=== PATIENT | female | born 1965 | race Caucasian/White ===

== ENCOUNTER 2017-03-18 04:59 | Emergency (ER) | payer MEDICAID ==
[2017-03-18] MEDS ORDERED: Albuterol/Ipratropium 3.0-0.5 MG/3 ML Neb Soln NEB ONE (05:06)
[2017-03-18] MEDS ORDERED: predniSONE 20 MG Tab PO ONE (05:06)
[2017-03-18] MEDS ORDERED: Albuterol 0.083% 2.5 MG/3 ML Neb Soln NEB ONE ×2 (05:06→07:16)
[2017-03-18] MEDS ORDERED: Budesonide 0.5 MG/2 ML Neb Susp NEB ONE (05:06)
--- NOTE | 2017-03-18 05:15 | EDM.PDOC ---
ED HPI GENERAL MEDICAL PROBLEM - General Chief Complaint: Respiratory Problem Stated Complaint: SOB Time Seen by Provider: 03/18/17 05:00 Source of Information: Reports: Patient, Old Records, RN Notes Reviewed History Limitations: Reports: No Limitations - History of Present Illness INITIAL COMMENTS - FREE TEXT/NARRATIVE: Brought by friend Chief complaint Short of breath, wheezing History of present illness 52-year-old female, quit smoking 3 years ago after 20 pack years of smoking, has been diagnosed with asthma and has run out of her inhaler. Expose to cat dander about 36 hours ago, increasing shortness of breath the last 12 hours ago. She allowed her insurance to labs and does not have any coverage so she ran out of her medication for asthma. Previously has been on prednisone but never admitted for asthma and never intubated. Mild cold symptoms, slight fever yesterday. Very short of breath and wheezing tonight No chest pain - Related Data Allergies Allergy/AdvReac Type Severity Reaction Status Date / Time doxepin [Doxepin] Allergy Swollen Verified 09/28/15 02:59 Tongue morphine Allergy Swelling Verified 09/28/15 02:59 tramadol Allergy Vomiting Verified 09/28/15 02:59 trazodone Allergy Itching Verified 09/28/15 02:59 Home Meds: Home Meds Vilazodone [Viibryd] 40 mg PO DAILY 10/10/14 [History] Albuterol [Proventil Neb Soln] 1 ampule IH Q4H PRN 09/28/15 [History] Albuterol [Ventolin HFA] 1 - 2 puff IH Q4H PRN 09/28/15 [History] Calcium Carbonate/Vitamin D3 [Calcium 600 + Vit D 400 Softgl] 1 tab PO TID 09/27 [History] hydrOXYzine HCl [hydrOXYzine] 25 mg PO BEDTIME 09/28/15 [History] Albuterol [IMW: Albuterol] 2.5 ml NEB Q3H PRN #75 ml 03/18/17 [Rx] predniSONE [Prednisone] 20 mg PO BID #14 tablet 03/18/17 [Rx] Past Medical History - Past Health History Medical/Surgical History: Denies Medical/Surgical History Respiratory History: Reports: Asthma, Other (See Below) Other Respiratory History: O2 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 Denies: Ear Discharge, Ear Pain, Eye Discharge, Throat Pain Respiratory: Reports: Shortness of Breath, Wheezing, Cough. Denies: Hemoptysis Cardiovascular: Reports: Dyspnea on Exertion. Denies: Chest Pain, Lightheadedness, Syncope GI/Abdominal: Reports: No Symptoms : Reports: No Symptoms Musculoskeletal: Reports: No Symptoms Skin: Reports: No Symptoms Neurological: Reports: No Symptoms Psychiatric: Reports: Other (Sleep disturbance) Immunologic: Reports: Environmental Allergy, Seasonal Allergy ED EXAM, GENERAL - Physical Exam Exam: See Below Exam Limited By: No Limitations General Appearance: Moderate Distress, Other (Audible wheezing and tachypnea, but she is able to respond appropriately to questioning, mild hypoxia on initial presentation) Eye Exam: Bilateral Eye: Normal Inspection Ears: Normal External Exam, Normal Canal, Hearing Grossly Normal, Normal TMs Nose: Normal Inspection, Normal Mucosa Throat/Mouth: Normal Inspection, Normal Oropharynx Head: Atraumatic Neck: Normal Inspection, Supple. No: Lymphadenopathy (R), Lymphadenopathy (L) Respiratory/Chest: Chest Non-Tender, Rhonchi, Wheezing, Prolonged Expiration, Other (Tachypnea) Cardiovascular: Normal Peripheral Pulses, Regular Rate, Rhythm, No Murmur GI/Abdominal: Soft, Non-Tender Back Exam: Normal Inspection Extremities: Normal Inspection, No Pedal Edema Neurological: Alert, No Motor/Sensory Deficits Psychiatric: Normal Affect Skin Exam: Warm, Dry, Normal Color, No Rash Course - Vital Signs Last Recorded V/S: Last Vital Signs Temp 35.0 C L 03/18/17 05:02 Pulse 68 03/18/17 05:25 Resp 19 03/18/17 05:25 BP 148/107 H 03/18/17 05:25 Pulse Ox 93 L 03/18/17 05:25 - Orders/Labs/Meds Orders: Active Orders 24 hr Category Date Time Status RT Aerosol Therapy [RC] ASDIRECTED Care 03/18/17 05:07 Active RT Aerosol Therapy [RC] ASDIRECTED Care 03/18/17 07:17 Ordered Meds: Medications Discontinued Medications Generic Name Dose Route Start Last Admin Trade Name Freq PRN Reason Stop Dose Admin Albuterol 2.5 mg 03/18/17 05:06 03/18/17 05:23 Proventil Neb Soln NEB 03/18/17 05:07 2.5 mg ONETIME ONE Administration Albuterol 2.5 mg 03/18/17 07:16 Proventil Neb Soln NEB 03/18/17 07:17 ONETIME ONE Albuterol/Ipratropium 3 ml 03/18/17 05:06 03/18/17 05:14 Duoneb 3.0-0.5 Mg/3 Ml NEB 03/18/17 05:07 3 ml ONETIME ONE Administration Budesonide 0.5 mg 03/18/17 05:06 03/18/17 05:33 Pulmicort NEB 03/18/17 05:07 0.5 mg ONETIME ONE Administration Prednisone 40 mg 03/18/17 05:06 03/18/17 05:14 Prednisone PO 03/18/17 05:07 40 mg ONETIME ONE Administration - Re-Assessments/Exams Free Text/Narrative Re-Assessment/Exam: 03/18/17 05:15 52-year-old female with exacerbation of asthma July, albuterol neb, budesonide and Pulmicort 40 mg by mouth 03/18/17 07:17 Much improved after the above Albuterol neb repeated Discharge home Follow-up primary care within 1 week Return to emergency if worsening Departure - Departure Time of Disposition: 07:25 Disposition: Home, Self-Care 01 Condition: Good Clinical Impression: Acute exacerbation of moderate persistent extrinsic asthma, Oxygen dependent, COPD exacerbation - Discharge Information Prescriptions: Albuterol [IMW: Albuterol] 2.5 ml NEB Q3H PRN #75 ml PRN Reason: Cough or wheezing predniSONE [Prednisone] 20 mg PO BID #14 tablet Instructions: Chronic Obstructive Pulmonary Disease Exacerbation, [id number] , Asthma, Adult Referrals: Vinay Wilson Sr, MD [Primary Care Provider] - Forms: ED Department Discharge Additional Instructions: Please make an appointment to be seen by her doctor within a week Return to emergency if your breathing is worsening - My Orders Last 24 Hours: My Active Orders 03/18/17 05:07 RT Aerosol Therapy [RC] ASDIRECTED 03/18/17 07:17 RT Aerosol Therapy [RC] ASDIRECTED - Assessment/Plan Last 24 Hours: My Active Orders 03/18/17 05:07 RT Aerosol Therapy [RC] ASDIRECTED 03/18/17 07:17 RT Aerosol Therapy [RC] ASDIRECTED
[2017-03-18 07:56] VITALS: BP 139/79
== END 2017-03-18 07:58 | disposition home or self-care (01) ==
LOC: JP.ED 04:59
DX: J45.41 Moderate persistent asthma with (acute) exacerbation (principal); J44.1 Chronic obstructive pulmonary disease with (acute) exacerbation; Z99.81 Dependence on supplemental oxygen; Z77.22 Contact with and (suspected) exposure to environmental tobacco smoke (acute) (chronic); Z79.899 Other long term (current) drug therapy; Z88.5 Allergy status to narcotic agent; Z88.8 Allergy status to other drugs, medicaments and biological substances
CPT/HCPCS: 94640; 99285; A9270; J7620; J7626; 99284

== ENCOUNTER 2017-09-13 11:30 | Day surgery (SDC) | payer MEDICAID ==
[~2017-09-13 11:30] MED LIST: Bacitracin Oint 1 GM U/D Packet ONE; Bupivacaine 0.5% 30 ML SDV ONE; Lidocaine 2% 20 ML MDV ONE; Midazolam 1 MG/ML 2 ML SDV ONE; Propofol 200 MG/20 ML SDV ONE; fentaNYL 100 MCG/2 ML SDV ONE
[2017-09-13] MEDS ORDERED: Lactated Ringers 1,000 ML IV SCH (12:00)
[2017-09-13] MEDS ORDERED: ceFAZolin 2 GM in Sodium Chloride 0.9% 50 ML IV ONE (12:30)
[2017-09-13] MEDS ORDERED: Propofol 200 MG/20 ML SDV ONE (13:07)
--- NOTE | 2017-09-13 14:42 | CR ---
FOOT RIGHT 3 views CLINICAL HISTORY:Surgery FINDINGS:There is some soft tissue swelling. Patient has had previous fixation with plates and screws at the first MTP joint. There is a calcaneal spur. Impression: Recent surgery and fixation at the first MTP joint
--- NOTE | 2017-09-13 14:43 | OR ---
DATE OF PROCEDURE: 09/13/2017 MACARONI MAKER: None. PREOPERATIVE DIAGNOSIS: Arthritis with bunion of right first MPJ. POSTOPERATIVE DIAGNOSIS: Arthritis with bunion of right first MPJ. PROCEDURE: Arthrodesis of the right first metatarsophalangeal joint. ANESTHESIA: Local with IV sedation. HEMOSTASIS: Obtained with an ankle tourniquet on the right ankle at 250 mmHg. ESTIMATED BLOOD LOSS: 5 mL. MATERIALS: One Arthrex right-sided standard first MPJ plate was used with four 3.0-mm locking screws and one 3.0 mm nonlocking screw. INJECTABLES: 16 mL of 1:1 mixture of lidocaine 2% plain and Marcaine 0.5% plain was injected preoperatively prior to prep. PATHOLOGY: None. CONDITION: Stable. INDICATIONS FOR SURGERY: Painful first MPJ of the right foot. PROCEDURE IN DETAIL: The patient was brought into the operating room and placed on the operating table in the supine position. Following IV sedation, anesthesia was obtained on the right foot with 16 mL of 1:1 mixture of lidocaine 2% plain and Marcaine 0.5% plain. The right foot was then scrubbed, prepped, and draped in the usual aseptic manner and raised to 60 degrees for hemostasis and exsanguinated using Esmarch bandage. Tourniquet was inflated. Foot was lowered to the table. Skin incision was made on the dorsomedial aspect of the right first metatarsophalangeal joint. Incisions were deepened through subcutaneous tissues with care taken to identify and retract all vital neurovascular structures. Following subcutaneous dissection, a T-type incision was made in the first metatarsophalangeal joint capsule. The capsule was carefully dissected off the first metatarsal head and the base of proximal phalanx. The sagittal saw was then used to remove the medial eminence of the first metatarsal head, and then the Arthrex 20 mm reamers were used to ream the first metatarsal head, and the base of the proximal phalanx. Prior to reaming, we did note some degenerative changes of the first metatarsophalangeal joint of the first metatarsal head with hypertrophy on the medial side of the first metatarsal head and also some loss of cartilage. After the reamers were used, fenestration was performed with a 1.6 mm K-wire in the first metatarsal head and the base of proximal phalanx, and the joint was reduced in its anatomic position for arthrodesis and plate was placed on it with provisional fixation of 2 pinballs. The guidewire for the compression screw was placed through a stab incision through proximal phalanx into the first metatarsal head and then the distal pinball was removed. The 30-mm compression screw was then placed and excellent compression was achieved. So, the guidewire was removed. Two locking screws were placed in the distal aspect of the plate and then the proximal pinball was removed. The eccentrically placed screw was placed in the eccentric hole with a 3-0 nonlocking screw and then the remaining 2 locking screw holes were filled with locking screws. The position was checked both visually and fluoroscopically and found to be anatomic with no gapping at the arthrodesis site. This incision was flushed out with copious amounts of sterile saline and then deep capsular closure was done with 3-0 Vicryl, subcutaneous closure with 3-0 Vicryl, and skin closure with 4-0 Prolene in a horizontal mattress configuration. The foot was dressed with Xeroform, 4x4s, Kerlix, and Coban. The patient was returned to the recovery room with vital signs stable and vascular status intact to both feet. The patient was told to rest, ice, and elevate the right foot. Keep dressings clean, dry, and intact. To be strict nonweightbearing. Ambulate with knee scooter and/or crutches. To go to the emergency room immediately if she has any nausea, vomiting, fever, chills, chest pain, calf pain, or difficulty breathing. The patient will return to clinic for followup in one week. Homar Toribio DPM /[id number]
[2017-09-13 16:04] VITALS: BP 123/69
== END 2017-09-13 15:45 | disposition home or self-care (01) ==
LOC: JP.SDS 11:30
PROVIDERS: ATTEND Podiatrist Foot & Ankle Surgery
DX: M19.071 Primary osteoarthritis, right ankle and foot (principal); M21.611 Bunion of right foot; J44.9 Chronic obstructive pulmonary disease, unspecified; M81.0 Age-related osteoporosis without current pathological fracture; F90.9 Attention-deficit hyperactivity disorder, unspecified type; F41.9 Anxiety disorder, unspecified; B19.20 Unspecified viral hepatitis C without hepatic coma; Z96.653 Presence of artificial knee joint, bilateral; Z79.899 Other long term (current) drug therapy; Z88.5 Allergy status to narcotic agent; Z88.8 Allergy status to other drugs, medicaments and biological substances
CPT/HCPCS: 28750; 73630; 76000; C1713; C1776; J0690; J2250; J2704; J3010; J3490; J7050; J7120

== ENCOUNTER 2018-03-23 12:21 | Emergency (ER) | payer MEDICAID ==
[2018-03-23] MEDS ORDERED: methylPREDNISolone Sodium Succinate 125 MG/2 ML SDV IVPUSH ONE (13:05)
[2018-03-23] MEDS ORDERED: Albuterol/Ipratropium 3.0-0.5 MG/3 ML Neb Soln NEB ONE (13:05)
--- NOTE | 2018-03-23 13:16 | EDM.PDOC ---
ED HPI GENERAL MEDICAL PROBLEM - General Chief Complaint: Respiratory Problem Stated Complaint: DIFFICULT TIME BREATHING Time Seen by Provider: 03/23/18 12:55 Source of Information: Reports: Patient History Limitations: Reports: No Limitations - History of Present Illness INITIAL COMMENTS - FREE TEXT/NARRATIVE: 53-year-old female with significant COPD, recently ventilated due to COPD exacerbation has been off antibiotics for over a week and starting to have increased sputum production, low-grade fevers and increased wheezing. She was supposed to start on a steroid for her nebulizer but the government shutdown has stopped the process of getting approved. She usually is on 2-3 L of nasal cannula O2, she is on 2 L in the emergency room and has an O2 saturation of 96%. Onset: Gradual Worsens with: Reports: Movement (She is getting short of breath with activity) Associated Symptoms: Reports: Cough, Malaise, Shortness of Breath. Denies: Chest Pain, Nausea/Vomiting Chest Pain Score (Numeric/FACES): 3 - Related Data Allergies Allergy/AdvReac Type Severity Reaction Status Date / Time doxepin [Doxepin] Allergy Swollen Verified 03/23/18 12:51 Tongue morphine Allergy Swelling Verified 03/23/18 12:51 trazodone Allergy Itching Verified 03/23/18 12:51 tramadol AdvReac Vomiting Verified 03/23/18 12:51 Home Meds: Home Meds Albuterol [Ventolin HFA] 2 puff IH Q6H 09/28/15 [History] Calcium Carbonate/Vitamin D3 [Calcium 600 + Vit D 400 Softgl] 1 tab PO DAILY [History] hydrOXYzine HCl [hydrOXYzine] 50 mg PO BEDTIME 09/28/15 [History] Albuterol [Proventil Neb Soln] 2.5 mg NEB Q1H PRN neb 03/02/18 [Rx] Albuterol/Ipratropium [DuoNeb 3.0-0.5 MG/3 ML] 3 ml NEB QIDRT neb 03/02/18 [Rx] Budesonide [Pulmicort] 0.5 mg NEB BIDRT neb 03/02/18 [Rx] Budesonide/Formoterol [Symbicort 160-4.5 MCG] 2 puff INH BID 30 Days #1 inhaler 03/02/18 [Rx] Theophylline [Thong-24] 200 mg PO Q8H cap.er 03/02/18 [Rx] Past Medical History - Past Health History Medical/Surgical History: Denies Medical/Surgical History HEENT History: Reports: Allergic Rhinitis, Impaired Vision Cardiovascular History: Reports: None Respiratory History: Reports: Asthma, COPD, Sleep Apnea, SOB, Other (See Below) Other Respiratory History: O2 dependant Gastrointestinal History: Reports: None Other Gastrointestinal History: rectal prolapse Genitourinary History: Reports: None 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: Dysfunctional Uterine Bleeding, Musculoskeletal History: Reports: Arthritis, Neck Pain, Chronic, Osteoarthritis , Osteoporosis Neurological History: Reports: Neuropathy, Peripheral Psychiatric History: Reports: Anxiety, Depression, Panic Attack Endocrine/Metabolic History: Reports: Obesity/BMI 30+ Hematologic History: Reports: Blood Transfusion(s), Iron Deficiency Immunologic History: Reports: None Oncologic (Cancer) History: Reports: None Dermatologic History: Reports: None - Infectious Disease History Infectious Disease History: Reports: Chicken Pox, Measles, Mononucleosis, Mumps - Past Surgical History GI Surgical History: Reports: Colonoscopy Female Surgical History: Reports: Hysterectomy, Salpingo-Oophorectomy Musculoskeletal Surgical History: Reports: Knee Replacement Oncologic Surgical History: Reports: None Social & Family History - Family History Family Medical History: Noncontributory - Tobacco Use Smoking Status *Q: Former Smoker Used Tobacco, but Quit: Yes Month/Year Tobacco Last Used: 0 - Caffeine Use Caffeine Use: Reports: Coffee - Recreational Drug Use Recreational Drug Use: Yes Recreational Drug Type: Reports: Marijuana/Hashish Recreational Drug Use Frequency: Socially ED ROS GENERAL - Review of Systems Review Of Systems: See Below Constitutional: Reports: Chills, Malaise HEENT: Denies: Throat Pain Respiratory: Reports: Shortness of Breath, Wheezing, Cough, Sputum Cardiovascular: Denies: Chest Pain GI/Abdominal: Denies: Abdominal Pain, Nausea, Vomiting Skin: Reports: No Symptoms Neurological: Denies: Headache Psychiatric: Reports: No Symptoms ED EXAM, GENERAL - Physical Exam Exam: See Below Exam Limited By: No Limitations General Appearance: Alert, No Apparent Distress Eye Exam: Bilateral Eye: Normal Inspection Head: Atraumatic Respiratory/Chest: No Respiratory Distress, Wheezing (Diffuse inspiratory and expiratory wheezes are heard but no significant increased respiratory effort) Cardiovascular: Regular Rate, Rhythm GI/Abdominal: Non-Tender Neurological: Alert, Oriented Psychiatric: Normal Affect, Normal Mood Skin Exam: Warm, Dry Course - Vital Signs Last Recorded V/S: Last Vital Signs Temp 97.5 F 03/23/18 12:44 Pulse 91 03/23/18 12:44 Resp 20 03/23/18 12:44 BP 134/90 03/23/18 12:44 Pulse Ox 91 L 03/23/18 12:46 - Orders/Labs/Meds Orders: Active Orders 24 hr Category Date Time Status RT Aerosol Therapy [RC] ASDIRECTED Care 03/23/18 13:05 Active Meds: Medications Discontinued Medications Generic Name Dose Route Start Last Admin Trade Name Bhavani PRN Reason Stop Dose Admin Albuterol/Ipratropium 3 ml 03/23/18 13:05 03/23/18 13:12 Duoneb 3.0-0.5 Mg/3 Ml NEB 03/23/18 13:06 3 ml ONETIME ONE Administration Methylprednisolone Sodium Succinate 125 mg 03/23/18 13:05 03/23/18 13:12 Solu-Medrol IVPUSH 03/23/18 13:06 125 mg ONETIME ONE Administration - Re-Assessments/Exams Free Text/Narrative Re-Assessment/Exam: 03/23/18 13:10 Patient was given 125 mg of IV Solu-Medrol and a DuoNeb nebulizer. She'll be discharged on doxycycline 100 mg twice a day for 7 days, and prednisone starting at 60 mg daily. She can recheck in the next 48-72 hours if not improving. Departure - Departure Time of Disposition: 13:40 Disposition: Home, Self-Care 01 Condition: Fair Clinical Impression: COPD exacerbation, Bronchitis - Discharge Information Instructions: Chronic Obstructive Pulmonary Disease, [id number] Referrals: Vinay Wilson Sr, MD [Primary Care Provider] - Forms: ED Department Discharge Care Plan Goals: Take antibiotic twice a day until gone, take 6 pills of prednisone on the first and second day with food, 5 pills on the third, fourth and fifth day, 4 pills on the sixth seventh, eight and ninth day, 3 on , 11th, and 12th, 2 on and 14th, then 1 daily until gone. - My Orders Last 24 Hours: My Active Orders 03/23/18 13:05 RT Aerosol Therapy [RC] ASDIRECTED - Assessment/Plan Last 24 Hours: My Active Orders 03/23/18 13:05 RT Aerosol Therapy [RC] ASDIRECTED
[2018-03-23 14:24] VITALS: BP 134/90
== END 2018-03-23 13:40 | disposition home or self-care (01) ==
LOC: JP.ED 12:21
DX: J44.1 Chronic obstructive pulmonary disease with (acute) exacerbation (principal); J40 Bronchitis, not specified as acute or chronic; J44.9 Chronic obstructive pulmonary disease, unspecified; Z88.5 Allergy status to narcotic agent; Z88.8 Allergy status to other drugs, medicaments and biological substances; Z79.899 Other long term (current) drug therapy; Z87.891 Personal history of nicotine dependence
CPT/HCPCS: 94640; 96374; 99285; J2930; J7620-GY

== ENCOUNTER 2018-06-08 07:00 | Emergency (ER) | payer MEDICAID ==
--- NOTE | 2018-06-08 08:16 | EDM.PDOC ---
ED HPI GENERAL MEDICAL PROBLEM - General Chief Complaint: Respiratory Problem Stated Complaint: BREATHING PROBLEMS Time Seen by Provider: 06/08/18 07:05 Source of Information: Reports: Patient History Limitations: Reports: No Limitations - History of Present Illness Onset: Other (Last night) Duration: Hour(s): (12) Location: Reports: Chest (Tightness) Quality: Reports: Other (Tightness) Severity: Moderate Improves with: Reports: None Worsens with: Reports: None Chest Pain Score (Numeric/FACES): 5 - Related Data Allergies Allergy/AdvReac Type Severity Reaction Status Date / Time doxepin [Doxepin] Allergy Swollen Verified 06/08/18 07:19 Tongue morphine Allergy Swelling Verified 06/08/18 07:19 trazodone Allergy Itching Verified 06/08/18 07:19 tramadol AdvReac Vomiting Verified 06/08/18 07:19 Home Meds: Home Meds Albuterol [Ventolin HFA] 2 puff IH Q6H 09/28/15 [History] Calcium Carbonate/Vitamin D3 [Calcium 600 + Vit D 400 Softgl] 1 tab PO TID 09/27 [History] hydrOXYzine HCl [hydrOXYzine] 50 mg PO BEDTIME 09/28/15 [History] Albuterol [Proventil Neb Soln] 2.5 mg NEB Q1H PRN neb 03/02/18 [Rx] Budesonide/Formoterol [Symbicort 160-4.5 MCG] 2 puff INH BID 30 Days #1 inhaler 03/02/18 [Rx] Past Medical History - Past Health History Medical/Surgical History: Denies Medical/Surgical History HEENT History: Reports: Allergic Rhinitis, Impaired Vision Cardiovascular History: Reports: None Respiratory History: Reports: Asthma, COPD, Sleep Apnea, SOB, Other (See Below) Other Respiratory History: O2 dependant Gastrointestinal History: Reports: None Other Gastrointestinal History: rectal prolapse Genitourinary History: Reports: None [employer]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: Dysfunctional Uterine Bleeding, Musculoskeletal History: Reports: Arthritis, Neck Pain, Chronic, Osteoarthritis , Osteoporosis Neurological History: Reports: Neuropathy, Peripheral Psychiatric History: Reports: Anxiety, Depression, Panic Attack Endocrine/Metabolic History: Reports: Obesity/BMI 30+ Hematologic History: Reports: Blood Transfusion(s), Iron Deficiency Immunologic History: Reports: None Oncologic (Cancer) History: Reports: None Dermatologic History: Reports: None - Infectious Disease History Infectious Disease History: Reports: Chicken Pox, Hepatitis C, Influenza, Measles, Mumps - Past Surgical History HEENT Surgical History: Reports: Oral Surgery Other HEENT Surgeries/Procedures: dentures GI Surgical History: Reports: Colonoscopy Female Surgical History: Reports: Hysterectomy, Salpingo-Oophorectomy Musculoskeletal Surgical History: Reports: Knee Replacement, Other (See Below) Other Musculoskeletal Surgeries/Procedures:: both knees. bunion surgery right Oncologic Surgical History: Reports: None Social & Family History - Family History Family Medical History: Noncontributory - Tobacco Use Smoking Status *Q: Former Smoker Used Tobacco, but Quit: Yes Month/Year Tobacco Last Used: 20 years - Caffeine Use Caffeine Use: Reports: Coffee, Tea - Recreational Drug Use Recreational Drug Type: Reports: Marijuana/Hashish ED ROS GENERAL - Review of Systems Review Of Systems: See Below Constitutional: Reports: No Symptoms HEENT: Reports: Rhinitis Respiratory: Reports: Shortness of Breath, Cough. Denies: Pleuritic Chest Pain , Hemoptysis Cardiovascular: Reports: No Symptoms ED EXAM, GENERAL - Physical Exam Exam: See Below Exam Limited By: No Limitations General Appearance: Alert, WD/WN, No Apparent Distress Ears: Normal Canal, Normal TMs Nose: Clear Rhinorrhea Throat/Mouth: Normal Inspection Neck: No: Lymphadenopathy (L) Respiratory/Chest: Decreased Breath Sounds, Wheezing. No: Retractions Cardiovascular: Regular Rate, Rhythm, No Edema EKG INTERPRETATION Rhythm: NSR [place]: Normal P-Wave: Present QRS: Normal ST-T: Normal QT: Normal Course - Vital Signs Last Recorded V/S: Last Vital Signs Temp 35.2 C L 06/08/18 07:09 Pulse 93 06/08/18 07:30 Resp 22 H 06/08/18 07:30 BP 147/72 H 06/08/18 07:30 Pulse Ox 92 L 06/08/18 07:30 - Orders/Labs/Meds Orders: Active Orders 24 hr Category Date Time Status EKG Documentation Completion [RC] ASDIRECTED Care 06/08/18 07:09 Active Chest 1V Frontal [CR] Stat Exams 06/08/18 07:07 Taken EKG 12 Lead [EK] Routine Ther 06/08/18 07:07 Ordered Labs: Laboratory Tests 06/08/18 06/08/18 06/08/18 Range/Units 07:07 07:15 07:15 WBC 7.2 (4.5-11.0) K/uL RBC 4.99 (3.30-5.50) M/uL Hgb 14.8 D (12.0-15.0) g/dL Hct 45.2 (36.0-48.0) % MCV 91 (80-98) fL MCH 30 (27-31) pg MCHC 33 (32-36) % Plt Count 209 (150-400) K/uL Neut % (Auto) 71 H (36-66) % Lymph % (Auto) 17 L (24-44) % [place] % (Auto) 10 H (2-6) % Eos % (Auto) 2 (2-4) % Baso % (Auto) 0 (0-1) % Puncture Site Lt radial ABG pH 7.465 H (7.350-7.450) ABG pCO2 35.7 (35.0-42.0) mmHg ABG pO2 58.9 L (75.0-100.0) mmHg ABG HCO3 25.3 (22.0-26.0) mmol/L ABG Total CO2 21.6 (21.0-25.0) mmol/L ABG O2 Saturation 91.7 L (95.0-98.0) % ABG O2 Content 19.5 (15.0-23.0) %vol ABG Base Excess 2.3 mm/L ABG Hemoglobin 15.4 (12.0-16.0) g/dL ABG Oxyhemoglobin 90.0 % ABG Carboxyhemoglobin 1.2 (0.0-1.6) % ABG Methemoglobin 0.6 % Jose Armando Test Passed O2 Delivery Device Nasal cannula Oxygen Flow Rate 3 L Sodium 140 (140-148) mmol/L Potassium 3.7 (3.6-5.2) mmol/L Chloride 103 (100-108) mmol/L Carbon Dioxide 27 (21-32) mmol/L Anion Gap 10.0 (5.0-14.0) mmol/L BUN 8 D (7-18) mg/dL Creatinine 0.9 (0.6-1.0) mg/dL Est Cr Clr Drug Dosing 55.86 mL/min Estimated GFR (MDRD) > 60 (>60) Glucose 163 H (74-106) mg/dL Calcium 9.1 (8.5-10.1) mg/dL Total Bilirubin 0.4 (0.2-1.0) mg/dL AST 124 H D (15-37) U/L ALT 231 H (12-78) U/L Alkaline Phosphatase 101 D (46-116) U/L NT-Pro-B Natriuret Pep 208 H (5-125) pg/mL Total Protein 7.4 (6.4-8.2) g/dL Albumin 3.7 (3.4-5.0) g/dL Globulin 3.7 H (2.3-3.5) g/dL Albumin/Globulin Ratio 1.0 L (1.2-2.2) Departure - Departure Time of Disposition: 08:30 Disposition: Home, Self-Care 01 Clinical Impression: Acute exacerbation of moderate persistent extrinsic asthma - Discharge Information Instructions: Chronic Obstructive Pulmonary Disease Referrals: Vinay Wilson Sr, MD [Primary Care Provider] - Forms: ED Department Discharge Additional Instructions: Prednisone 60mg once a day for 5 days. Continue inhalers. Follow up with Dr. Wilson in 1 week. - Problem List & Annotations (1) Acute exacerbation of COPD with asthma SNOMED Code(s): 2112950444197 Code(s): J44.1 - CHRONIC OBSTRUCTIVE PULMONARY DISEASE W (ACUTE) EXACERBATION ; J45.901 - UNSPECIFIED ASTHMA WITH (ACUTE) EXACERBATION Status: Acute Current Visit: Yes - Problem List Review Problem List Initiated/Reviewed/Updated: Yes - My Orders Last 24 Hours: My Active Orders 06/08/18 07:07 Chest 1V Frontal [CR] Stat EKG 12 Lead [EK] Routine 06/08/18 07:09 EKG Documentation Completion [RC] ASDIRECTED - Assessment/Plan Last 24 Hours: My Active Orders 06/08/18 07:07 Chest 1V Frontal [CR] Stat EKG 12 Lead [EK] Routine 06/08/18 07:09 EKG Documentation Completion [RC] ASDIRECTED
[2018-06-08 08:18] VITALS: BP 142/68
--- NOTE | 2018-06-08 08:50 | CR ---
CHEST: Portable CLINICAL HISTORY:SOB COMPARISON:03/01/2018 FINDINGS: The heart size, pulmonary vascular and hilar structures are normal. No infiltrate effusion or pneumothorax is seen. IMPRESSION: No acute cardiopulmonary process.
== END 2018-06-08 08:19 | disposition home or self-care (01) ==
LOC: JP.ED 07:00
DX: J45.41 Moderate persistent asthma with (acute) exacerbation (principal); J44.9 Chronic obstructive pulmonary disease, unspecified; F41.9 Anxiety disorder, unspecified; F32.9 Major depressive disorder, single episode, unspecified; Z87.891 Personal history of nicotine dependence; Z88.8 Allergy status to other drugs, medicaments and biological substances; Z99.81 Dependence on supplemental oxygen; Z88.5 Allergy status to narcotic agent; Z79.899 Other long term (current) drug therapy
CPT/HCPCS: 36415; 36600; 71045; 71045-26; 80053; 82803; 83880; 85025; 93005; 99285-25

== ENCOUNTER 2018-12-09 16:10 | Emergency (ER) | payer SELFPAY ==
[2018-12-09 16:22] VITALS: BP 145/79; PULSE 88
[2018-12-09] MEDS ORDERED: Albuterol/Ipratropium 3.0-0.5 MG/3 ML Neb Soln NEB ONE (17:09)
--- NOTE | 2018-12-09 17:33 | EDM.PDOC ---
ED HPI GENERAL MEDICAL PROBLEM - General Chief Complaint: Respiratory Problem Stated Complaint: COUGH, FEVER, ACHY Time Seen by Provider: 12/09/18 16:38 Source of Information: Reports: Patient History Limitations: Reports: No Limitations - History of Present Illness INITIAL COMMENTS - FREE TEXT/NARRATIVE: 53 yo female presents to ER with SOB, cough and 7 days hx of sinus pressure and drainage. - Related Data Allergies Allergy/AdvReac Type Severity Reaction Status Date / Time doxepin [Doxepin] Allergy Swollen Verified 12/09/18 16:32 Tongue morphine Allergy Swelling Verified 12/09/18 16:32 trazodone Allergy Itching Verified 12/09/18 16:32 tramadol AdvReac Vomiting Verified 12/09/18 16:32 Home Meds: Home Meds Albuterol [Ventolin HFA] 2 puff IH Q6H 09/28/15 [History] Calcium Carbonate/Vitamin D3 [Calcium 600 + Vit D 400 Softgl] 1 tab PO TID 09/27 [History] hydrOXYzine HCl [hydrOXYzine] 50 mg PO BEDTIME 09/28/15 [History] Albuterol [Proventil Neb Soln] 2.5 mg NEB Q1H PRN neb 03/02/18 [Rx] Budesonide/Formoterol [Symbicort 160-4.5 MCG] 2 puff INH BID 30 Days #1 inhaler 03/02/18 [Rx] Past Medical History - Past Health History Medical/Surgical History: Denies Medical/Surgical History HEENT History: Reports: Allergic Rhinitis, Impaired Vision Cardiovascular History: Reports: None Respiratory History: Reports: Asthma, COPD, Sleep Apnea, SOB, Other (See Below) Other Respiratory History: O2 dependant Gastrointestinal History: Reports: None Other Gastrointestinal History: rectal prolapse Genitourinary History: Reports: None [employer]ICATOR History: Reports: Dysfunctional Uterine Bleeding, Musculoskeletal History: Reports: Arthritis, Neck Pain, Chronic, Osteoarthritis , Osteoporosis Neurological History: Reports: Neuropathy, Peripheral Psychiatric History: Reports: Anxiety, Depression, Panic Attack Endocrine/Metabolic History: Reports: Obesity/BMI 30+ Hematologic History: Reports: Blood Transfusion(s), Iron Deficiency Immunologic History: Reports: None Oncologic (Cancer) History: Reports: None Dermatologic History: Reports: None - Infectious Disease History Infectious Disease History: Reports: Chicken Pox, Hepatitis C, Influenza, Measles, Mumps - Past Surgical History HEENT Surgical History: Reports: Oral Surgery Other HEENT Surgeries/Procedures: dentures GI Surgical History: Reports: Colonoscopy Female Surgical History: Reports: Hysterectomy, Salpingo-Oophorectomy Musculoskeletal Surgical History: Reports: Knee Replacement, Other (See Below) Other Musculoskeletal Surgeries/Procedures:: both knees. bunion surgery right Oncologic Surgical History: Reports: None Social & Family History - Family History Family Medical History: Noncontributory - Tobacco Use Smoking Status *Q: Never Smoker Second Hand Smoke Exposure: Yes - Caffeine Use Caffeine Use: Reports: Coffee, Tea ED ROS GENERAL - Review of Systems Review Of Systems: See Below Constitutional: Reports: Fever, Chills, Fatigue, Night Sweats HEENT: Reports: Sinus Problem Respiratory: Reports: Shortness of Breath, Wheezing Cardiovascular: Denies: Chest Pain GI/Abdominal: Denies: Abdominal Pain Skin: Denies: Rash Neurological: Reports: Headache ED EXAM, GENERAL - Physical Exam Exam: See Below Exam Limited By: No Limitations General Appearance: Alert, WD/WN, No Apparent Distress Nose: Clear Rhinorrhea Throat/Mouth: Inflammation (mild) Head: Atraumatic, Normocephalic Neck: Supple. No: Lymphadenopathy (R), Lymphadenopathy (L) Respiratory/Chest: No Respiratory Distress, Wheezing Cardiovascular: Normal Peripheral Pulses, Regular Rate, Rhythm GI/Abdominal: Normal Bowel Sounds, Soft, Non-Tender Neurological: Alert, Oriented Psychiatric: Normal Affect, Normal Mood Skin Exam: Warm, Dry, Intact Course - Vital Signs Last Recorded V/S: Last Vital Signs Temp 36.9 C 12/09/18 16:37 Pulse 88 12/09/18 16:37 Resp 16 12/09/18 16:37 BP 145/79 H 12/09/18 16:37 Pulse Ox 90 L 12/09/18 16:37 - Orders/Labs/Meds Orders: Active Orders 24 hr Category Date Time Status RT Aerosol Therapy [RC] ASDIRECTED Care 12/09/18 17:09 Active Chest 2V [CR] Stat Exams 12/09/18 17:09 Taken Labs: Laboratory Tests 12/09/18 Range/Units 17:09 WBC 10.1 (4.5-11.0) K/uL RBC 4.14 (3.30-5.50) M/uL Hgb 12.3 D (12.0-15.0) g/dL Hct 36.4 (36.0-48.0) % MCV 88 (80-98) fL MCH 30 (27-31) pg MCHC 34 (32-36) % Plt Count 358 (150-400) K/uL Add Manual Diff Yes Neutrophils % (Manual) 65 (36-66) % Band Neutrophils % 2 L (5-11) % Lymphocytes % (Manual) 23 L (24-44) % Monocytes % (Manual) 10 H (2-6) % Polychromasia Meds: Medications Discontinued Medications Generic Name Dose Route Start Last Admin Trade Name Freq PRN Reason Stop Dose Admin Albuterol/Ipratropium 3 ml 12/09/18 17:09 12/09/18 17:19 Duoneb 3.0-0.5 Mg/3 Ml NEB 12/09/18 17:10 3 ml ONETIME ONE Administration - Re-Assessments/Exams Free Text/Narrative Re-Assessment/Exam: 12/09/18 17:53 WBC normal. Departure - Departure Time of Disposition: 17:54 Disposition: Home, Self-Care 01 Condition: Good Clinical Impression: Acute exacerbation of COPD with asthma, Bronchitis - Discharge Information *PRESCRIPTION DRUG MONITORING PROGRAM REVIEWED*: Not Applicable *COPY OF PRESCRIPTION DRUG MONITORING REPORT IN PATIENT [place]: Not Applicable Instructions: Chronic Obstructive Pulmonary Disease, [id number] Referrals: Vinay Wilson Sr, MD [Primary Care Provider] - Forms: ED Department Discharge Additional Instructions: Augmentin 500 twice daily for 5 days prednisone 20 mg taper dosing for 7 days increase fluid intake with goal of 2 liters per day - My Orders Last 24 Hours: My Active Orders 12/09/18 17:09 RT Aerosol Therapy [RC] ASDIRECTED Chest 2V [CR] Stat - Assessment/Plan Last 24 Hours: My Active Orders 12/09/18 17:09 RT Aerosol Therapy [RC] ASDIRECTED Chest 2V [CR] Stat
--- NOTE | 2018-12-09 18:12 | CRLCR ---
INDICATION: Cough COMPARISON: X-ray chest one view 06/08/2018 TECHNIQUE: Frontal and lateral views of the chest FINDINGS: There are patchy bibasilar airspace opacities, worse on the right, likely representing infiltrates. The cardiomediastinal silhouette is slightly prominent. There is also mild prominence of the pulmonary interstitium, suggesting congestion. There is no pleural effusion or pneumothorax. The osseous structures are unremarkable. Dictated by Vinod Burnett MD @ Dec 09 2018 6:10PM Signed by Dr. Vinod Burnett @ Dec 09 2018 6:10PM
== END 2018-12-09 18:32 | disposition home or self-care (01) ==
LOC: JP.ED 16:10
DX: J44.1 Chronic obstructive pulmonary disease with (acute) exacerbation (principal); E66.9 Obesity, unspecified; Z68.30 Body mass index [BMI] 30.0-30.9, adult; Z77.22 Contact with and (suspected) exposure to environmental tobacco smoke (acute) (chronic); Z88.5 Allergy status to narcotic agent; Z88.8 Allergy status to other drugs, medicaments and biological substances; Z79.899 Other long term (current) drug therapy
CPT/HCPCS: 36415; 71046; 85025; 94640; 99285-25; J7620-GY